=== PATIENT | male | born 1950 | race Hispanic/Latino ===

== ENCOUNTER → 2017-08-10 | Outpatient (CLI) | payer MEDICARE | END | disposition home or self-care (01) | LOC: RAH 08:21 | PROVIDERS: ATTEND Family Medicine | DX: I50.9 Heart failure, unspecified (principal); I51.7 Cardiomegaly; I35.1 Nonrheumatic aortic (valve) insufficiency | CPT/HCPCS: 93306 ==

== ENCOUNTER 2017-08-11 12:51 | Emergency (ER) | payer MEDICARE ==
[2017-08-11 14:22] LABS: BASOPHILS % (AUTO) 0.8 % (0.0-5.0); EOSINOPHILS % (AUTO) 1.1 % (0.0-8.0); HEMATOCRIT 28.2 % (42-54); LYMPHOCYTES % (AUTO) 12.7 % (21.0-51.0); MEAN CORPUSCULAR HEMOGLOBIN 31.4 pg (27.0-33.0); MEAN CORPUSCULAR VOLUME 92.4 fL (79-99); MONOCYTES % (AUTO) 5.3 % (3.0-13.0); NEUTROPHILS % (AUTO) 80.1 % (40.0-77.0); PLATELET COUNT (AUTO) 283 K/uL (130-400); RED BLOOD CELL COUNT(AUTO) 3.05 MIL/uL (4.50-6.20); RED CELL DISTRIBUTION WIDTH 13.4 % (11.0-15.5); WHITE BLOOD COUNT (AUTO) 9.9 K/uL (4.8-10.8)
[2017-08-11 14:37] LABS: ALBUMIN 2.9 g/dL (3.5-5.0); BILIRUBIN,TOTAL 0.6 mg/dL (0.2-1.0); POTASSIUM 5.6 mmol/L (3.5-5.1); TOTAL PROTEIN, SERUM 8.8 g/dL (6.0-8.3)
[2017-08-11 14:43] LABS: CREATININE 15.4 mg/dL (0.5-1.5)
== END 2017-08-11 15:55 | disposition left against medical advice (07) ==
LOC: EDH 12:51
DX: N17.9 Acute kidney failure, unspecified (principal); E87.5 Hyperkalemia
CPT/HCPCS: 36415; 80053; 85025; 93005; 94761

== ENCOUNTER 2017-08-14 15:59 | Inpatient (IN) | payer MEDICARE ==
[~2017-08-14] VITALS: Ht 162.6 cm; Wt 65.1 kg
[2017-08-14 16:35] LABS: BASOPHILS % (AUTO) 0.8 % (0.0-5.0); EOSINOPHILS % (AUTO) 1.1 % (0.0-8.0); HEMATOCRIT 27.8 % (42-54); LYMPHOCYTES % (AUTO) 11.8 % (21.0-51.0); MEAN CORPUSCULAR HEMOGLOBIN 31.7 pg (27.0-33.0); MEAN CORPUSCULAR HGB CONC 34.3 g/dL (32.0-36.0); MEAN CORPUSCULAR VOLUME 92.3 fL (79-99); MONOCYTES % (AUTO) 4.4 % (3.0-13.0); NEUTROPHILS % (AUTO) 81.9 % (40.0-77.0); PLATELET COUNT (AUTO) 306 K/uL (130-400); RED BLOOD CELL COUNT(AUTO) 3.01 MIL/uL (4.50-6.20); RED CELL DISTRIBUTION WIDTH 13.3 % (11.0-15.5); WHITE BLOOD COUNT (AUTO) 12.4 K/uL (4.8-10.8)
[2017-08-14] MEDS: PANTOPRAZOLE SODIUM 40 MG TABLET.DR PO SCH (16:51)
[2017-08-14] MEDS ORDERED: CALCIUM GLUCONATE 1 GM/10 ML VIAL IV ONE (16:54)
[2017-08-14] MEDS ORDERED: SODIUM BICARB 50MEQ 50ML VIAL ONE (16:54)
[2017-08-14] MEDS ORDERED: DEXTROSE 50%-WATER 50 ML DISP.SYRIN IV ONE (16:54)
[2017-08-14] MEDS ORDERED: SODIUM CHLORIDE 0.9% 50 ML IV ONE (16:55)
[2017-08-14] MEDS ORDERED: INSULIN HUMULIN R 100 UNIT/ML 3ML ONE (16:57)
[2017-08-14] MEDS ORDERED: SODIUM CHLORIDE 0.9% 10 ML VIAL IVP PRN (17:00)
[2017-08-14 17:03] LABS: INR 0.95 (0.85-1.15); PARTIAL THROMBOPLASTIN TIME 27.5 SEC (26.3-35.5)
[2017-08-14 17:10] LABS: ALBUMIN 3.1 g/dL (3.5-5.0); BILIRUBIN,TOTAL 0.7 mg/dL (0.2-1.0); TOTAL PROTEIN, SERUM 9.3 g/dL (6.0-8.3)
[2017-08-14 17:21] LABS: CREATININE 17.4 mg/dL (0.5-1.5)
[2017-08-14] MEDS ORDERED: SODIUM POLYSTYRENE SULFONATE 15 GM/60 ML ML PO NR (18:45)
[2017-08-14] MEDS ORDERED: SODIUM POLYSTYRENE SULFONATE 15 GM/60 ML ML ONE (18:47)
[2017-08-14] MEDS ORDERED: PANTOPRAZOLE SODIUM 40 MG TABLET.DR PO ONE (21:23)
[2017-08-14 21:45] VITALS: BP 151/80
[2017-08-14 23:05] VITALS: BP 134/71
[2017-08-15] VITALS (12 sets, daily range): BP systolic 118–165; BP diastolic 64–94
[2017-08-15 05:28] LABS: HEMATOCRIT 25.8 % (42-54); MEAN CORPUSCULAR HEMOGLOBIN 31.6 pg (27.0-33.0); MEAN CORPUSCULAR HGB CONC 34.7 g/dL (32.0-36.0); MEAN CORPUSCULAR VOLUME 91.1 fL (79-99); PLATELET COUNT (AUTO) 240 K/uL (130-400); RED BLOOD CELL COUNT(AUTO) 2.83 MIL/uL (4.50-6.20); RED CELL DISTRIBUTION WIDTH 13.3 % (11.0-15.5); WHITE BLOOD COUNT (AUTO) 9.5 K/uL (4.8-10.8)
[2017-08-15 05:36] LABS: INR 0.99 (0.85-1.15); PARTIAL THROMBOPLASTIN TIME 28.1 SEC (26.3-35.5); PROTHROMBIN TIME 10.4 SEC (9.6-11.6)
[2017-08-15 05:39] LABS: % IRON SATURATION 28.7 % (30-44)
[2017-08-15 05:46] LABS: POTASSIUM 5.6 mmol/L (3.5-5.1)
[2017-08-15 05:53] LABS: CREATININE 17.8 mg/dL (0.5-1.5)
[2017-08-15] MEDS ORDERED: LIDOCAINE HCL 1% 20 ML VIAL ONE (08:25)
[2017-08-15] MEDS: PANTOPRAZOLE SODIUM 40 MG TABLET.DR PO SCH (10:03)
[2017-08-15] MEDS: FOLIC ACID/VITAMIN B COMP W-C 1 MG CAPSULE PO SCH (10:03)
[2017-08-15] MEDS ORDERED: SODIUM CHLORIDE 0.9% 1000ML 1,000 ML IV PRN (11:00)
[2017-08-15] MEDS ORDERED: ALBUMIN (HUMAN) 25% 100 ML IV PRN (11:00)
[2017-08-15] MEDS ORDERED: 0.9% SODIUM CHLORIDE 250 ML IV BAG IV PRN (11:00)
[2017-08-15 11:18] LABS: HEMOGLOBIN A1C 5.5 % (4.0-6.0)
[2017-08-15 11:20] LABS: ALBUMIN 2.7 g/dL (3.5-5.0)
[2017-08-15] MEDS ORDERED: LIDOCAINE HCL 1% 20 ML VIAL MISC ONE (12:15)
[2017-08-15] MEDS ORDERED: EPOETIN ALFA 20,000 UNIT/ML VIAL SQ SCH (14:00)
[2017-08-15] MEDS: CALCIUM ACETATE 667 MG CAPSULE PO SCH (18:20)
[2017-08-15 23:21] LABS: HEMATOCRIT 24.9 % (42-54)
[2017-08-16] MEDS ORDERED: DESMOPRESSIN ACETATE 4 MCG/ML 0 MCG in SODIUM CHLORIDE 0.9% 50 ML IV SCH (00:15)
[2017-08-16] MEDS ORDERED: PHARMACY COMMUNICATION MISC SCH (01:45)
[2017-08-16 03:05] VITALS: BP 150/74
[2017-08-16] MEDS ORDERED: SODIUM CHLORIDE 0.9% IJ SCH (03:45)
[2017-08-16] MEDS ORDERED: DESMOPRESSIN ACETATE IJ SCH (03:45)
[2017-08-16 04:38] LABS: EOSINOPHILS % (AUTO) 1.4 % (0.0-8.0); HEMATOCRIT 23.3 % (42-54); LYMPHOCYTES % (AUTO) 17.5 % (21.0-51.0); MEAN CORPUSCULAR HEMOGLOBIN 32.4 pg (27.0-33.0); MEAN CORPUSCULAR VOLUME 90.1 fL (79-99); MONOCYTES % (AUTO) 6.9 % (3.0-13.0); NEUTROPHILS % (AUTO) 73.2 % (40.0-77.0); PLATELET COUNT (AUTO) 206 K/uL (130-400); RED BLOOD CELL COUNT(AUTO) 2.58 MIL/uL (4.50-6.20); RED CELL DISTRIBUTION WIDTH 13.3 % (11.0-15.5); WHITE BLOOD COUNT (AUTO) 9.8 K/uL (4.8-10.8)
[2017-08-16 04:58] LABS: ALBUMIN 2.6 g/dL (3.5-5.0); BILIRUBIN,TOTAL 0.6 mg/dL (0.2-1.0); POTASSIUM 4.5 mmol/L (3.5-5.1)
[2017-08-16 05:23] LABS: CREATININE 13.9 mg/dL (0.5-1.5)
[2017-08-16 07:00] VITALS: BP 134/69
[2017-08-16] MEDS: CALCIUM ACETATE 667 MG CAPSULE PO SCH ×2 (07:50→17:00)
[2017-08-16] MEDS: PANTOPRAZOLE SODIUM 40 MG TABLET.DR PO SCH (09:00)
[2017-08-16] MEDS: FOLIC ACID/VITAMIN B COMP W-C 1 MG CAPSULE PO SCH (09:00)
[2017-08-16 10:23] LABS: HEPATITIS Bs ANTIGEN SCREEN P Negative (Negative)
[2017-08-16 11:00] VITALS: BP 136/64
[2017-08-16 15:00] VITALS: BP 127/68
[2017-08-16] MEDS ORDERED: COMPOUND IV REFRIGERATED 1 EACH IVSOLN MISC PRN (15:45)
[2017-08-16 19:26] VITALS: BP 131/69
[2017-08-16] MEDS ORDERED: EPOETIN ALFA 20,000 UNIT/ML VIAL SQ SCH (21:00)
[2017-08-16] MEDS ORDERED: 0.9% SODIUM CHLORIDE 250 ML IV BAG IV PRN (23:15)
[2017-08-16] MEDS ORDERED: HEPARIN SODIUM 5000UNIT/ML 1ML VIAL IJ PRN (23:15)
[2017-08-16] MEDS ORDERED: SODIUM CHLORIDE 0.9% 1000ML 1,000 ML IV PRN (23:15)
[2017-08-16 23:35] VITALS: BP 147/95
[2017-08-17 03:27] VITALS: BP 118/71
[2017-08-17 04:34] LABS: BASOPHILS % (AUTO) 0.8 % (0.0-5.0); EOSINOPHILS % (AUTO) 1.2 % (0.0-8.0); HEMATOCRIT 25.2 % (42-54); LYMPHOCYTES % (AUTO) 13.8 % (21.0-51.0); MEAN CORPUSCULAR HEMOGLOBIN 31.5 pg (27.0-33.0); MEAN CORPUSCULAR HGB CONC 34.5 g/dL (32.0-36.0); MEAN CORPUSCULAR VOLUME 91.3 fL (79-99); MONOCYTES % (AUTO) 6.7 % (3.0-13.0); NEUTROPHILS % (AUTO) 77.5 % (40.0-77.0); PLATELET COUNT (AUTO) 200 K/uL (130-400); RED BLOOD CELL COUNT(AUTO) 2.76 MIL/uL (4.50-6.20); RED CELL DISTRIBUTION WIDTH 13.1 % (11.0-15.5); WHITE BLOOD COUNT (AUTO) 10.9 K/uL (4.8-10.8)
[2017-08-17 04:53] LABS: ALBUMIN 2.8 g/dL (3.5-5.0); BILIRUBIN,TOTAL 0.6 mg/dL (0.2-1.0); POTASSIUM 4.5 mmol/L (3.5-5.1); TOTAL PROTEIN, SERUM 8.5 g/dL (6.0-8.3)
[2017-08-17 05:01] LABS: CREATININE 12.6 mg/dL (0.5-1.5)
[2017-08-17 08:22] VITALS: BP 129/67
[2017-08-17] MEDS: CALCIUM ACETATE 667 MG CAPSULE PO SCH ×3 (08:42→16:23)
[2017-08-17] MEDS: PANTOPRAZOLE SODIUM 40 MG TABLET.DR PO SCH (08:42)
[2017-08-17] MEDS: FOLIC ACID/VITAMIN B COMP W-C 1 MG CAPSULE PO SCH (08:43)
[2017-08-17 11:49] VITALS: BP 127/67
[2017-08-17] MEDS ORDERED: 0.9% SODIUM CHLORIDE 250 ML IV BAG IV PRN (15:45)
[2017-08-17] MEDS ORDERED: ALBUMIN (HUMAN) 25% 100 ML IV PRN (15:45)
[2017-08-17] MEDS: HEPARIN SODIUM 5000UNIT/ML 1ML VIAL IJ PRN (16:23)
[2017-08-17 16:30] VITALS: BP 123/65
[2017-08-17 19:45] VITALS: BP 121/64
[2017-08-17 23:30] VITALS: BP 120/67
[2017-08-18] VITALS (18 sets, daily range): BP systolic 106–135; BP diastolic 49–80
[2017-08-18 04:50] LABS: HEMATOCRIT 23.5 % (42-54); MEAN CORPUSCULAR HEMOGLOBIN 32.3 pg (27.0-33.0); MEAN CORPUSCULAR VOLUME 92.4 fL (79-99); PLATELET COUNT (AUTO) 179 K/uL (130-400); RED BLOOD CELL COUNT(AUTO) 2.54 MIL/uL (4.50-6.20); RED CELL DISTRIBUTION WIDTH 13.4 % (11.0-15.5); WHITE BLOOD COUNT (AUTO) 12.6 K/uL (4.8-10.8)
[2017-08-18 05:11] LABS: POTASSIUM 4.2 mmol/L (3.5-5.1)
[2017-08-18 05:14] LABS: CREATININE 8.4 mg/dL (0.5-1.5)
[2017-08-18] MEDS ORDERED: BUPIVACAINE/PF 0.5% 30ML VIAL ONE (06:44)
[2017-08-18] MEDS ORDERED: EPINEPHRINE 1 MG/ML AMPULE ONE (06:44)
[2017-08-18] MEDS ORDERED: PAPAVERINE HCL 30 MG/ML 2ML VIAL ONE (06:44)
[2017-08-18] MEDS ORDERED: NEOMY SULF/POLYMYXIN B SULFATE 1 ML AMPUL IR ONE (06:45)
[2017-08-18] MEDS ORDERED: THROMBIN-JMI 5000 UNIT/VIAL TP ONE (06:45)
[2017-08-18] MEDS: CALCIUM ACETATE 667 MG CAPSULE PO SCH ×3 (07:30→16:04)
[2017-08-18] MEDS: CEFAZOLIN SODIUM 1 GM VIAL ONE ×2 (07:34→07:50)
[2017-08-18] MEDS ORDERED: KETAMINE HCL 100 MG/ML 5ML VIAL IJ ONE (07:35)
[2017-08-18] MEDS ORDERED: ROPIVACAINE 0.5% 5MG/ML 30ML IJ ONE (07:36)
[2017-08-18] MEDS ORDERED: MIDAZOLAM HCL 1 MG/ML 2ML VIAL ONE (07:38)
[2017-08-18] MEDS ORDERED: FENTANYL CITRATE PF 50 MCG/1 ML 2ML VIAL ONE (07:39)
[2017-08-18] MEDS: FOLIC ACID/VITAMIN B COMP W-C 1 MG CAPSULE PO SCH (09:00)
[2017-08-18] MEDS: PANTOPRAZOLE SODIUM 40 MG TABLET.DR PO SCH (09:00)
[2017-08-18] MEDS ORDERED: MEPERIDINE-PF 50 MG/ML SYG ONE (09:35)
[2017-08-18] MEDS ORDERED: ACETAMINOPHEN 325 MG TAB ONE (20:26)
[2017-08-19 00:38] VITALS: BP 118/65
[2017-08-19 04:05] VITALS: BP 120/63
[2017-08-19 05:34] LABS: HEMATOCRIT 25.5 % (42-54); MEAN CORPUSCULAR HEMOGLOBIN 31.5 pg (27.0-33.0); MEAN CORPUSCULAR HGB CONC 33.8 g/dL (32.0-36.0); MEAN CORPUSCULAR VOLUME 93.4 fL (79-99); PLATELET COUNT (AUTO) 203 K/uL (130-400); RED BLOOD CELL COUNT(AUTO) 2.73 MIL/uL (4.50-6.20); RED CELL DISTRIBUTION WIDTH 13.2 % (11.0-15.5); WHITE BLOOD COUNT (AUTO) 13.5 K/uL (4.8-10.8)
[2017-08-19 05:37] LABS: BAND NEUTROPHILS % (MANUAL) 2 % (0-2); BASOPHILS % (MANUAL) 3 % (0-2); EOSINOPHILS % (MANUAL) 4 % (1-6); LYMPHOCYTES % (MANUAL) 6 % (22-44); MAN.DIFF COMMENT-IMPRESSION MANUAL DIFFERENTIAL; MONOCYTES % (MANUAL) 8 % (2-9); PLATELET MORPHOLOGY COMMENT ADEQUATE; SEGMENTED NEUTROPHILS % 77 % (40-70)
[2017-08-19 05:42] LABS: PHOSPHORUS 6.6 mg/dL (2.5-4.9); POTASSIUM 4.7 mmol/L (3.5-5.1)
[2017-08-19 05:50] LABS: CREATININE 11.1 mg/dL (0.5-1.5)
[2017-08-19] MEDS: CALCIUM ACETATE 667 MG CAPSULE PO SCH ×2 (07:30→11:30)
[2017-08-19 08:00] VITALS: BP 135/68
[2017-08-19] MEDS: PANTOPRAZOLE SODIUM 40 MG TABLET.DR PO SCH (10:14)
[2017-08-19] MEDS: FOLIC ACID/VITAMIN B COMP W-C 1 MG CAPSULE PO SCH (10:14)
[2017-08-19 12:00] VITALS: BP 132/67
[2017-08-19] MEDS ORDERED: TRAMADOL HCL 50 MG TABLET PO PRN (13:45)
[2017-08-19] MEDS ORDERED: SEVELAMER HCL 800 MG TABLET PO SCH (17:00)
[2017-08-19 19:10] VITALS: BP 132/62
[2017-08-19] MEDS: HEPARIN SODIUM 5000UNIT/ML 1ML VIAL IJ PRN (21:55)
== END 2017-08-19 22:30 | disposition home or self-care (01) | DRG 628 ==
LOC: EDH 15:59 → EDHIP 16:15 → 3CH 21:36
PROVIDERS: ADMIT Family Medicine; ATTEND Family Medicine
PROC: 0JH63XZ Insertion of Tunneled Vascular Access Device into Chest Subcutaneous Tissue and Fascia, Percutaneous Approach (ICD-10-PCS; principal; 2017-08-15)
PROC: 5A1D70Z Performance of Urinary Filtration, Intermittent, Less than 6 Hours Per Day (ICD-10-PCS; 2017-08-15)
PROC: 02H633Z Insertion of Infusion Device into Right Atrium, Percutaneous Approach (ICD-10-PCS; 2017-08-15)
PROC: B244ZZZ Ultrasonography of Right Heart (ICD-10-PCS; 2017-08-15)
PROC: 5A1D70Z Performance of Urinary Filtration, Intermittent, Less than 6 Hours Per Day (ICD-10-PCS; 2017-08-16)
PROC: 5A1D70Z Performance of Urinary Filtration, Intermittent, Less than 6 Hours Per Day (ICD-10-PCS; 2017-08-17)
PROC: 031C0ZF Bypass Left Radial Artery to Lower Arm Vein, Open Approach (ICD-10-PCS; 2017-08-18)
PROC: 5A1D70Z Performance of Urinary Filtration, Intermittent, Less than 6 Hours Per Day (ICD-10-PCS; 2017-08-19)
DX: E87.5 Hyperkalemia (principal); N18.6 End stage renal disease; N17.9 Acute kidney failure, unspecified; E87.2 Acidosis; E11.21 Type 2 diabetes mellitus with diabetic nephropathy; I12.0 Hypertensive chronic kidney disease with stage 5 chronic kidney disease or end stage renal disease; D64.9 Anemia, unspecified; E11.22 Type 2 diabetes mellitus with diabetic chronic kidney disease; E78.5 Hyperlipidemia, unspecified; I73.9 Peripheral vascular disease, unspecified; Z82.49 Family history of ischemic heart disease and other diseases of the circulatory system; Z91.19 Patient's noncompliance with other medical treatment and regimen; Z91.15 Patient's noncompliance with renal dialysis; Z87.891 Personal history of nicotine dependence; Z99.2 Dependence on renal dialysis
CPT/HCPCS: 36415; 36558; 71046; 76770; 77001; 80048; 80053; 80061; 82040; 82550; 83036; 83540; 83550; 84100; 84520; 85014; 85018; 85025; 85027; 85610; 85730; 86701; 86704; 86706; 87340; 87390; 87520; 90935; 93005; 93971; 94761; A4218; C1750; J0171; J0610; J0690; J0885; J1644; J1815; J2175; J2250; J2440; J2795; J3010; J3490; J7030; J7070

== ENCOUNTER → 2018-03-06 | Outpatient (CLI) | payer MEDICARE | END | disposition home or self-care (01) | LOC: OIH 11:11 | PROVIDERS: ATTEND Family Medicine | DX: J15.7 Pneumonia due to Mycoplasma pneumoniae (principal) | CPT/HCPCS: 71046 ==

== ENCOUNTER 2018-06-01 08:45 | Emergency (ER) | payer MEDICARE ==
[2018-06-01] MEDS ORDERED: ONDANSETRON HCL 4 MG/2 ML VIAL ONE (09:00)
[2018-06-01 09:07] LABS: BASOPHILS % (AUTO) 0.9 % (0.0-5.0); EOSINOPHILS % (AUTO) 0.2 % (0.0-8.0); HEMATOCRIT 37.5 % (42-54); LYMPHOCYTES % (AUTO) 14.1 % (21.0-51.0); MEAN CORPUSCULAR HEMOGLOBIN 32.5 pg (27.0-33.0); MEAN CORPUSCULAR HGB CONC 33.7 g/dL (32.0-36.0); MEAN CORPUSCULAR VOLUME 96.3 fL (79-99); MONOCYTES % (AUTO) 16.1 % (3.0-13.0); NEUTROPHILS % (AUTO) 68.7 % (40.0-77.0); PLATELET COUNT (AUTO) 134 K/uL (130-400); RED BLOOD CELL COUNT(AUTO) 3.89 MIL/uL (4.50-6.20); RED CELL DISTRIBUTION WIDTH 14.3 % (11.0-15.5); WHITE BLOOD COUNT (AUTO) 5.7 K/uL (4.8-10.8)
[2018-06-01 09:20] LABS: ALBUMIN 3.6 g/dL (3.5-5.0); BILIRUBIN,TOTAL 0.8 mg/dL (0.2-1.0); POTASSIUM 4.7 mmol/L (3.5-5.1); TOTAL PROTEIN, SERUM 8.9 g/dL (6.0-8.3)
[2018-06-01 09:46] LABS: CREATININE 10.6 mg/dL (0.5-1.5)
[2018-06-01] MEDS ORDERED: PANTOPRAZOLE 40 MG/VIAL IVP ONE (11:15)
[2018-06-01 11:46] LABS: APPEARANCE,URINE Clear (CLEAR); BILIRUBIN,URINE Negative (NEGATIVE); COLOR,URINE Yellow (YELLOW); GLUCOSE, URINE (UA) TRACE mg/dL (NEGATIVE); KETONES,URINE Trace mg/dL (NEGATIVE); LEUKOCYTE ESTERASE ,URINE Negative (NEGATIVE); NITRATE,URINE Negative (NEGATIVE); OCCULT BLOOD,URINE Moderate (NEGATIVE); PH,URINE 8.5 (5.0-8.0); PROTEIN,URINE >=1000 (NEGATIVE)
[2018-06-01 11:56] LABS: BACTERIA,URINE Rare /HPF (None Seen); RBC,URINE 26-50 /HPF (0-1); SQUAMOUS EPITHELIAL CELL,UR Rare /HPF (0-2); WBC,URINE 0-1 /HPF (0-1)
== END 2018-06-01 13:56 | disposition home or self-care (01) ==
LOC: EDH 08:45
DX: I12.0 Hypertensive chronic kidney disease with stage 5 chronic kidney disease or end stage renal disease (principal); R11.2 Nausea with vomiting, unspecified; N18.6 End stage renal disease; R19.7 Diarrhea, unspecified; Z99.2 Dependence on renal dialysis
CPT/HCPCS: 36415; 71046; 80053; 81001; 84484; 85025; 87804 ×2; 93005; 96374; 96375; 99284; C9113; J2405

== ENCOUNTER → 2019-01-08 | Outpatient (CLI) | payer MEDICARE ==
[~2019-01-08] MED LIST: METR500T PO
== END | disposition home or self-care (01) ==
LOC: OIH 09:48
PROVIDERS: ATTEND Family Medicine
DX: I12.9 Hypertensive chronic kidney disease with stage 1 through stage 4 chronic kidney disease, or unspecified chronic kidney disease (principal); N18.9 Chronic kidney disease, unspecified
CPT/HCPCS: 71046

== ENCOUNTER 2019-02-11 11:47 | Inpatient (IN) | payer MEDICARE ==
[~2019-02-11] VITALS: Ht 162.6 cm; Wt 56.2 kg
[2019-02-11] MEDS ORDERED: ONDANSETRON ODT 4 MG TAB ONE (12:04)
[2019-02-11 12:41] LABS: BASOPHILS % (AUTO) 0.8 % (0.0-5.0); EOSINOPHILS % (AUTO) 0.3 % (0.0-8.0); HEMATOCRIT 38.7 % (42-54); LYMPHOCYTES % (AUTO) 16.7 % (21.0-51.0); MEAN CORPUSCULAR HEMOGLOBIN 32.8 pg (27.0-33.0); MEAN CORPUSCULAR HGB CONC 34.1 g/dL (32.0-36.0); MONOCYTES % (AUTO) 3.8 % (3.0-13.0); NEUTROPHILS % (AUTO) 78.4 % (40.0-77.0); NUCLEATED RED BLOOD CELLS 0.1 % (0.0-0.19); PLATELET COUNT (AUTO) 160 K/uL (130-400); RED BLOOD CELL COUNT(AUTO) 4.03 MIL/uL (4.50-6.20); RED CELL DISTRIBUTION WIDTH 14.7 % (11.0-15.5); WHITE BLOOD COUNT (AUTO) 7.7 K/uL (4.8-10.8)
[2019-02-11 12:57] LABS: ALBUMIN 3.8 g/dL (3.5-5.0); BILIRUBIN,TOTAL 0.9 mg/dL (0.2-1.0); TOTAL PROTEIN, SERUM 8.5 g/dL (6.0-8.3)
[2019-02-11 13:03] LABS: CREATININE 11.1 mg/dL (0.5-1.5); POTASSIUM 6.6 mmol/L (3.5-5.1)
[2019-02-11] MEDS ORDERED: ONDANSETRON HCL 4 MG/2 ML VIAL IVP PRN (13:45)
[2019-02-11] MEDS ORDERED: ALBUTEROL SULFATE 0.083% 2.5 MG/3 ML INH IH ONE (14:01)
[2019-02-11] MEDS ORDERED: FUROSEMIDE 10 MG/ML 2ML VIAL ONE (14:03)
[2019-02-11] MEDS ORDERED: INSULIN HUMULIN R 100 UNIT/ML 3ML ONE (14:04)
[2019-02-11] MEDS ORDERED: DEXTROSE 50%-WATER 50 ML DISP.SYRIN IV ONE ×2 (14:04→16:38)
[2019-02-11 20:00] VITALS: BP 171/87
[2019-02-11] MEDS: INSULIN R PO SS1 SQ SCH (21:00)
[2019-02-12] VITALS: BP 146/84
[2019-02-12 03:46] VITALS: BP 142/79
[2019-02-12 05:07] LABS: HEMATOCRIT 41.4 % (42-54); MEAN CORPUSCULAR HEMOGLOBIN 33.5 pg (27.0-33.0); MEAN CORPUSCULAR HGB CONC 34.7 g/dL (32.0-36.0); MEAN CORPUSCULAR VOLUME 96.7 fL (79-99); PLATELET COUNT (AUTO) 162 K/uL (130-400); RED BLOOD CELL COUNT(AUTO) 4.28 MIL/uL (4.50-6.20); RED CELL DISTRIBUTION WIDTH 14.7 % (11.0-15.5); WHITE BLOOD COUNT (AUTO) 10.3 K/uL (4.8-10.8)
[2019-02-12] MEDS: INSULIN R PO SS1 SQ SCH ×4 (05:33→21:00)
[2019-02-12 05:55] LABS: CREATININE 7.1 mg/dL (0.5-1.5); MAGNESIUM 2.2 mg/dL (1.80-2.40); POTASSIUM 3.8 mmol/L (3.5-5.1); TOTAL PROTEIN, SERUM 9.2 g/dL (6.0-8.3)
[2019-02-12 08:00] VITALS: BP 155/85
[2019-02-12] MEDS: PANTOPRAZOLE SODIUM 40 MG TABLET.DR PO SCH (09:25)
[2019-02-12 12:00] VITALS: BP 145/80
--- NOTE | 2019-02-12 12:20 | NUR ---
DC PLAN PER PATIENT, IS INDEPENDENT, LIVES WITH SISTER, NO PROVIDER, NO MEDICAL EQUIPMENT, AND FEELS SAFE TO RETURN HOME. PER PATIENT, HAS DIALYSIS MWF AT 3:30PM AT [facility]. Addendum: 02/12/19 at 1221 by EDDIE TOMLINSON RN Amended: Links added.
[2019-02-12 20:00] VITALS: BP 175/86
[2019-02-13] VITALS (8 sets, daily range): BP systolic 144–165; BP diastolic 79–85
[2019-02-13 05:20] LABS: HEMATOCRIT 44.7 % (42-54); MEAN CORPUSCULAR HEMOGLOBIN 32.7 pg (27.0-33.0); MEAN CORPUSCULAR HGB CONC 33.8 g/dL (32.0-36.0); MEAN CORPUSCULAR VOLUME 96.8 fL (79-99); PLATELET COUNT (AUTO) 179 K/uL (130-400); RED BLOOD CELL COUNT(AUTO) 4.62 MIL/uL (4.50-6.20); RED CELL DISTRIBUTION WIDTH 14.9 % (11.0-15.5); WHITE BLOOD COUNT (AUTO) 10.9 K/uL (4.8-10.8)
[2019-02-13 05:39] LABS: POTASSIUM 4.9 mmol/L (3.5-5.1)
[2019-02-13 05:44] LABS: CREATININE 10.4 mg/dL (0.5-1.5)
[2019-02-13] MEDS: INSULIN R PO SS1 SQ SCH ×4 (07:30→21:00)
[2019-02-13 08:11] LABS: HEPATITIS A ANTIBODY IGM Negative (Negative); HEPATITIS B CORE IGM Negative (Negative); HEPATITIS Bs ANTIGEN SCREEN P Negative (Negative)
[2019-02-13] MEDS: PANTOPRAZOLE SODIUM 40 MG TABLET.DR PO SCH (09:26)
[2019-02-13] MEDS ORDERED: LACTULOSE 20 GM/30 ML UDCUP PO PRN (17:00)
[2019-02-14 04:04] VITALS: BP 137/79
[2019-02-14 06:09] LABS: HEMATOCRIT 43.3 % (42-54); MEAN CORPUSCULAR HEMOGLOBIN 32.8 pg (27.0-33.0); MEAN CORPUSCULAR VOLUME 96.5 fL (79-99); PLATELET COUNT (AUTO) 183 K/uL (130-400); RED BLOOD CELL COUNT(AUTO) 4.49 MIL/uL (4.50-6.20); WHITE BLOOD COUNT (AUTO) 10.3 K/uL (4.8-10.8)
[2019-02-14 06:24] LABS: ALBUMIN 4.1 g/dL (3.5-5.0); BILIRUBIN,TOTAL 1.3 mg/dL (0.2-1.0); POTASSIUM 4.1 mmol/L (3.5-5.1); TOTAL PROTEIN, SERUM 9.1 g/dL (6.0-8.3)
[2019-02-14 06:30] LABS: CREATININE 8.6 mg/dL (0.5-1.5)
[2019-02-14] MEDS: INSULIN R PO SS1 SQ SCH ×3 (07:30→21:00)
[2019-02-14 07:44] VITALS: BP 142/79
[2019-02-14] MEDS: PANTOPRAZOLE SODIUM 40 MG TABLET.DR PO SCH (09:04)
[2019-02-14 11:35] VITALS: BP 159/78
--- NOTE | 2019-02-14 13:54 | NUR ---
PAGED DR. WRIGHT- ADVISED BY [employer] THAT DR. WRIGHT WAS RELUCTANT TO DC PATIENT. STATES PATIENT PAIN NEEDS TO BE CONTROLLED. CALL RECD FROM DR. Carpenter; STATES PATIENT IS COMPLAINING OF PAIN TO HIM, SO HE DOES NOT WANT TO DISCHARGE YET.
--- NOTE | 2019-02-14 14:23 | NUR ---
ZOFRAN Patient states he has been feeling with some discomfort when he eats, as if he is going to throw up, but he does not throw up. Just some saliva. And he has been feeling like this since this Monday. Denies any pain or needing pain medication. States his discomfort is related to food intake since Monday. Zofran was offered and accepted. States today he feels somewhat better but still uncomfortable. For lunch he ate 75% and is tolerating it. Since Monday, when symptoms started, he has not had any episodes of vomiting. Will update Dr. Redmond.
[2019-02-14 15:38] VITALS: BP 156/67
--- NOTE | 2019-02-14 18:30 | NUR ---
UPDATE Patient states he feels well. States he had 100% dinner and had no issues. States he feels well. Denies pain. Denies nausea. No emesis.
[2019-02-14 19:32] VITALS: BP 148/73
[2019-02-15] VITALS: BP 143/74
[2019-02-15 04:00] VITALS: BP 138/67
[2019-02-15 04:53] LABS: HEMATOCRIT 41.6 % (42-54); MEAN CORPUSCULAR HEMOGLOBIN 33.3 pg (27.0-33.0); MEAN CORPUSCULAR HGB CONC 34.4 g/dL (32.0-36.0); MEAN CORPUSCULAR VOLUME 96.6 fL (79-99); PLATELET COUNT (AUTO) 131 K/uL (130-400); RED CELL DISTRIBUTION WIDTH 14.5 % (11.0-15.5); WHITE BLOOD COUNT (AUTO) 10.9 K/uL (4.8-10.8)
[2019-02-15 05:15] LABS: ALBUMIN 3.7 g/dL (3.5-5.0); POTASSIUM 4.2 mmol/L (3.5-5.1); TOTAL PROTEIN, SERUM 8.2 g/dL (6.0-8.3)
[2019-02-15 05:18] LABS: CREATININE 10.5 mg/dL (0.5-1.5)
[2019-02-15] MEDS: INSULIN R PO SS1 SQ SCH ×3 (06:08→16:18)
--- NOTE | 2019-02-15 07:48 | NUR ---
PATIENT UPDATE Pt hasn't complained of any abdominal pain for the last 2 nights, sleeping well, started eating well and did verbalize desire to get discharged to home after hemodialysis today. HD nurse here this am, beginning to start hemodialysis. BUN of 53 and Creatinine of 10.5 this am.
[2019-02-15 08:08] VITALS: BP 165/71
[2019-02-15 11:35] VITALS: BP 145/82
--- NOTE | 2019-02-15 11:54 | NUR ---
DIALYSIS PATIENT RECEIVED DIALYSIS TODAY FROM 07:45 TO 10:45 HOURS. REMOVED WAS 0.5 LITERS. PATIENT TOLERATED PROCEDURE WITHOUT INCIDENT.
[2019-02-15] MEDS: PANTOPRAZOLE SODIUM 40 MG TABLET.DR PO SCH (12:13)
[2019-02-15 16:34] VITALS: BP 131/66
--- NOTE | 2019-02-15 18:00 | NUR ---
PATIENT DISCHARGE PATIENT DISCHARGED, IV DISCONTINUED, CATHLON INTACT, BLEEDING CONTROLLED, PATIENT TOLERATED WITHOUT INCIDENT.
== END 2019-02-15 18:15 | disposition home or self-care (01) | DRG 438 ==
LOC: EDH 11:47 → EDHIP 13:30 → 3AH 17:47
PROVIDERS: ADMIT Internal Medicine Nephrology; ATTEND Internal Medicine Nephrology
PROC: 5A1D70Z Performance of Urinary Filtration, Intermittent, Less than 6 Hours Per Day (ICD-10-PCS; principal; 2019-02-11)
PROC: 5A1D70Z Performance of Urinary Filtration, Intermittent, Less than 6 Hours Per Day (ICD-10-PCS; 2019-02-13)
PROC: 5A1D70Z Performance of Urinary Filtration, Intermittent, Less than 6 Hours Per Day (ICD-10-PCS; 2019-02-15)
DX: K85.90 Acute pancreatitis without necrosis or infection, unspecified (principal); N18.6 End stage renal disease; J18.9 Pneumonia, unspecified organism; I12.0 Hypertensive chronic kidney disease with stage 5 chronic kidney disease or end stage renal disease; E87.5 Hyperkalemia; E11.22 Type 2 diabetes mellitus with diabetic chronic kidney disease; E87.70 Fluid overload, unspecified; Z87.01 Personal history of pneumonia (recurrent); Z91.11 Patient's noncompliance with dietary regimen; Z91.19 Patient's noncompliance with other medical treatment and regimen; Z99.2 Dependence on renal dialysis; Z99.81 Dependence on supplemental oxygen; E11.51 Type 2 diabetes mellitus with diabetic peripheral angiopathy without gangrene
CPT/HCPCS: 36415; 76700; 80048; 80053; 80074; 82550; 82948; 83690; 83735; 84100; 84484; 85025; 85027; 90935; 93005; 94640; G0378; J1815; J1940; J2405; J7070

== ENCOUNTER 2019-02-27 12:38 | Emergency (ER) | payer MEDICARE ==
[2019-02-27 13:15] LABS: EOSINOPHILS % (AUTO) 0.2 % (0.0-8.0); HEMATOCRIT 39.7 % (42-54); LYMPHOCYTES % (AUTO) 15.2 % (21.0-51.0); MEAN CORPUSCULAR HEMOGLOBIN 33.3 pg (27.0-33.0); MEAN CORPUSCULAR HGB CONC 34.2 g/dL (32.0-36.0); MEAN CORPUSCULAR VOLUME 97.5 fL (79-99); MONOCYTES % (AUTO) 5.2 % (3.0-13.0); NEUTROPHILS % (AUTO) 78.4 % (40.0-77.0); NUCLEATED RED BLOOD CELLS 0.1 % (0.0-0.19); PLATELET COUNT (AUTO) 164 K/uL (130-400); RED BLOOD CELL COUNT(AUTO) 4.07 MIL/uL (4.50-6.20); WHITE BLOOD COUNT (AUTO) 9.5 K/uL (4.8-10.8)
[2019-02-27 13:22] LABS: ALBUMIN 4.1 g/dL (3.5-5.0); BILIRUBIN,DIRECT 0.2 mg/dL (0.0-0.3); BILIRUBIN,TOTAL 0.8 mg/dL (0.2-1.0); POTASSIUM 5.6 mmol/L (3.5-5.1); TOTAL PROTEIN, SERUM 8.8 g/dL (6.0-8.3)
[2019-02-27 13:24] LABS: INR 0.95 (0.85-1.15); PARTIAL THROMBOPLASTIN TIME 27.3 SEC (26.3-35.5)
[2019-02-27] MEDS ORDERED: KETOROLAC TROMETHAMINE 30MG/ML ONE (13:26)
[2019-02-27] MEDS ORDERED: ONDANSETRON HCL 4 MG/2 ML VIAL ONE (13:26)
[2019-02-27] MEDS ORDERED: SODIUM CHLORIDE 0.9% 1000ML 1,000 ML IV ONE (13:27)
[2019-02-27 13:35] LABS: CREATININE 10.1 mg/dL (0.5-1.5)
[2019-02-27 15:44] LABS: APPEARANCE,URINE Clear (CLEAR); BILIRUBIN,URINE Negative (NEGATIVE); COLOR,URINE Yellow (YELLOW); GLUCOSE, URINE (UA) Negative (NEGATIVE); KETONES,URINE Trace mg/dL (NEGATIVE); LEUKOCYTE ESTERASE ,URINE Trace (NEGATIVE); NITRATE,URINE Negative (NEGATIVE); OCCULT BLOOD,URINE Trace (NEGATIVE); PROTEIN,URINE 300 mg/dL (NEGATIVE)
[2019-02-27 16:00] LABS: BACTERIA,URINE Few /HPF (None Seen); MUCUS,URINE Moderate LPF (None Seen)
== END 2019-02-27 16:10 | disposition home or self-care (01) ==
LOC: EDH 12:38
DX: R11.2 Nausea with vomiting, unspecified (principal); R10.13 Epigastric pain; I12.0 Hypertensive chronic kidney disease with stage 5 chronic kidney disease or end stage renal disease; N18.6 End stage renal disease; Z99.2 Dependence on renal dialysis
CPT/HCPCS: 36415; 74176; 80048; 80076; 81001; 82550; 83690; 84484; 85025; 85610; 85730; 93005; 96361; 96374; 96375; 99285; J1885; J2405; J7030

== ENCOUNTER 2020-12-01 19:09 | Inpatient (IN) | payer MEDICARE ==
[~2020-12-01] VITALS: Ht 162.6 cm; Wt 56.3 kg
[2020-12-01 19:39] VITALS: BP 154/74
[2020-12-01 20:42] LABS: BASOPHILS % (AUTO) 0.7 % (0.0-5.0); EOSINOPHILS % (AUTO) 3.2 % (0.0-8.0); MEAN CORPUSCULAR HEMOGLOBIN 30.6 pg (27.0-33.0); MEAN CORPUSCULAR HGB CONC 32.4 g/dL (32.0-36.0); MEAN CORPUSCULAR VOLUME 94.4 fL (79-99); MONOCYTES % (AUTO) 5.5 % (3.0-13.0); NEUTROPHILS % (AUTO) 80.2 % (40.0-77.0); PLATELET COUNT (AUTO) 168 K/uL (130-400); RED BLOOD CELL COUNT(AUTO) 1.96 MIL/uL (4.50-6.20); RED CELL DISTRIBUTION WIDTH 16.2 % (11.0-15.5); WHITE BLOOD COUNT (AUTO) 7.6 K/uL (4.8-10.8)
[2020-12-01 20:48] LABS: HEMATOCRIT 18.5 % (42-54)
[2020-12-01 20:59] LABS: B-TYPE NATRIURETIC PEPTIDE 1380 pg/mL (0-100)
[2020-12-01 21:13] LABS: BILIRUBIN,TOTAL 0.5 mg/dL (0.2-1.0); MAGNESIUM 2.2 mg/dL (1.80-2.40); PHOSPHORUS 11.6 mg/dL (2.5-4.9); POTASSIUM 4.2 mmol/L (3.5-5.1); TOTAL PROTEIN, SERUM 6.8 g/dL (6.0-8.3)
[2020-12-01] MEDS ORDERED: ONDANSETRON 4MG INJ IV PRN (22:00)
[2020-12-01] MEDS ORDERED: ALBUTEROL 0.083% 2.5 MG/3 ML INH IH PRN (22:00)
[2020-12-01] MEDS ORDERED: NITROGLYCERIN 0.4 MG SL TAB SL PRN (22:00)
[2020-12-01] MEDS ORDERED: ACETAMINOPHEN 325 MG TAB PO PRN ×2 (22:00)
[2020-12-01] MEDS ORDERED: LACTULOSE 20 GM/30 ML UDCUP PO PRN (22:00)
[2020-12-01] MEDS ORDERED: HYDRALAZINE 20MG/ML VIAL IV PRN (22:30)
[2020-12-01 22:38] LABS: INR 1.06 (0.85-1.15); PROTHROMBIN TIME 11.5 SEC (9.6-11.6)
[2020-12-01 22:40] LABS: HEMOGLOBIN A1C 4.9 % (4.0-6.0); PARTIAL THROMBOPLASTIN TIME 30.7 SEC (26.3-35.5)
[2020-12-01 22:41] LABS: % IRON SATURATION 116.6 % (30-44)
[2020-12-01 23:28] VITALS: BP 151/65
[2020-12-02] VITALS (19 sets, daily range): BP systolic 100–158; BP diastolic 55–75
[2020-12-02 04:37] LABS: APPEARANCE,URINE Clear (CLEAR); BILIRUBIN,URINE Negative (NEGATIVE); COLOR,URINE Yellow (YELLOW); GLUCOSE, URINE (UA) TRACE mg/dL (NEGATIVE); KETONES,URINE Trace mg/dL (NEGATIVE); LEUKOCYTE ESTERASE ,URINE Negative (NEGATIVE); NITRATE,URINE Negative (NEGATIVE); OCCULT BLOOD,URINE Trace (NEGATIVE); PROTEIN,URINE 300 mg/dL (NEGATIVE); UROBILINOGEN,URINE 0.2 mg/dL (0.2-1.0)
[2020-12-02 04:52] LABS: BACTERIA,URINE Few /HPF (None Seen); RBC,URINE None Seen /HPF (0-1)
[2020-12-02 06:33] LABS: BASOPHILS % (AUTO) 0.3 % (0.0-5.0); EOSINOPHILS % (AUTO) 3.3 % (0.0-8.0); HEMATOCRIT 25.3 % (42-54); LYMPHOCYTES % (AUTO) 9.2 % (21.0-51.0); MEAN CORPUSCULAR HEMOGLOBIN 29.9 pg (27.0-33.0); MEAN CORPUSCULAR VOLUME 93.4 fL (79-99); MONOCYTES % (AUTO) 6.2 % (3.0-13.0); NEUTROPHILS % (AUTO) 80.7 % (40.0-77.0); PLATELET COUNT (AUTO) 164 K/uL (130-400); RED BLOOD CELL COUNT(AUTO) 2.71 MIL/uL (4.50-6.20); RED CELL DISTRIBUTION WIDTH 15.6 % (11.0-15.5); WHITE BLOOD COUNT (AUTO) 7.3 K/uL (4.8-10.8)
[2020-12-02 06:54] LABS: ALBUMIN 2.9 g/dL (3.5-5.0); BILIRUBIN,TOTAL 0.6 mg/dL (0.2-1.0); MAGNESIUM 2.2 mg/dL (1.80-2.40); POTASSIUM 4.2 mmol/L (3.5-5.1); TOTAL PROTEIN, SERUM 6.8 g/dL (6.0-8.3)
[2020-12-02 06:56] LABS: CREATININE 30.3 mg/dL (0.5-1.5)
[2020-12-02] MEDS ORDERED: CLONIDINE HCL 0.1 MG TABLET PO PRN (08:30)
[2020-12-02] MEDS: PANTOPRAZOLE 40 MG/VIAL IVP SCH ×2 (08:32→21:41)
[2020-12-02] MEDS: SODIUM BICARBONATE 650 MG TAB PO SCH ×3 (09:39→21:41)
[2020-12-02] MEDS: METOPROLOL TARTRATE 25 MG TAB PO SCH ×2 (09:39→21:53)
[2020-12-02] MEDS: FERROUS SULFATE 325 MG TABLET.DR PO SCH (09:39)
[2020-12-02] MEDS: LISINOPRIL 20 MG TABLET PO SCH (09:39)
[2020-12-02] MEDS: Vitamin B Complex/Vit C/Folic Acid PO SCH (09:39)
[2020-12-02] MEDS ORDERED: 0.9%NACL 1000ML 1,000 ML IV PRN (19:00)
[2020-12-02] MEDS: METOCLOPRAMIDE 10 MG/2 ML VIAL IVP SCH (21:41)
[2020-12-03] VITALS (9 sets, daily range): BP systolic 118–148; BP diastolic 53–83
[2020-12-03 05:39] LABS: BASOPHILS % (AUTO) 0.4 % (0.0-5.0); EOSINOPHILS % (AUTO) 2.1 % (0.0-8.0); HEMATOCRIT 24.8 % (42-54); MEAN CORPUSCULAR HEMOGLOBIN 29.8 pg (27.0-33.0); MEAN CORPUSCULAR HGB CONC 32.7 g/dL (32.0-36.0); MEAN CORPUSCULAR VOLUME 91.2 fL (79-99); MONOCYTES % (AUTO) 6.4 % (3.0-13.0); NEUTROPHILS % (AUTO) 83.7 % (40.0-77.0); PLATELET COUNT (AUTO) 147 K/uL (130-400); RED BLOOD CELL COUNT(AUTO) 2.72 MIL/uL (4.50-6.20); RED CELL DISTRIBUTION WIDTH 15.9 % (11.0-15.5); WHITE BLOOD COUNT (AUTO) 7.3 K/uL (4.8-10.8)
[2020-12-03] MEDS: METOCLOPRAMIDE 10 MG/2 ML VIAL IVP SCH ×4 (06:33→20:32)
[2020-12-03 06:38] LABS: % IRON SATURATION 91.1 % (30-44)
[2020-12-03 06:59] LABS: BILIRUBIN,TOTAL 0.6 mg/dL (0.2-1.0); MAGNESIUM 2.1 mg/dL (1.80-2.40); PHOSPHORUS 7.7 mg/dL (2.5-4.9); POTASSIUM 3.3 mmol/L (3.5-5.1)
[2020-12-03 07:00] LABS: ALBUMIN 2.9 g/dL (3.5-5.0); TOTAL PROTEIN, SERUM 6.9 g/dL (6.0-8.3)
[2020-12-03 07:02] LABS: CREATININE 20.5 mg/dL (0.5-1.5)
[2020-12-03] MEDS: SODIUM BICARBONATE 650 MG TAB PO SCH ×3 (10:16→20:32)
[2020-12-03] MEDS: PANTOPRAZOLE 40 MG/VIAL IVP SCH ×2 (10:16→20:32)
[2020-12-03] MEDS: FERROUS SULFATE 325 MG TABLET.DR PO SCH (10:17)
[2020-12-03] MEDS: METOPROLOL TARTRATE 25 MG TAB PO SCH ×2 (10:17→20:33)
[2020-12-03] MEDS: LISINOPRIL 20 MG TABLET PO SCH (10:17)
[2020-12-03] MEDS: Vitamin B Complex/Vit C/Folic Acid PO SCH (10:17)
[2020-12-04] VITALS (20 sets, daily range): BP systolic 124–147; BP diastolic 52–69
[2020-12-04 04:25] LABS: PHOSPHORUS 7.6 mg/dL (2.5-4.9); POTASSIUM 3.1 mmol/L (3.5-5.1)
[2020-12-04 04:30] LABS: CREATININE 20.7 mg/dL (0.5-1.5)
[2020-12-04 05:02] LABS: MEAN CORPUSCULAR HEMOGLOBIN 30.1 pg (27.0-33.0); MEAN CORPUSCULAR HGB CONC 33.2 g/dL (32.0-36.0); MEAN CORPUSCULAR VOLUME 90.7 fL (79-99); PLATELET COUNT (AUTO) 111 K/uL (130-400); RED BLOOD CELL COUNT(AUTO) 2.16 MIL/uL (4.50-6.20); RED CELL DISTRIBUTION WIDTH 15.9 % (11.0-15.5); WHITE BLOOD COUNT (AUTO) 7.3 K/uL (4.8-10.8)
[2020-12-04 05:04] LABS: HEMATOCRIT 19.6 % (42-54)
[2020-12-04 06:07] LABS: EOSINOPHILS % (MANUAL) 2 % (1-6); LYMPHOCYTES % (MANUAL) 15 % (22-44); MAN.DIFF COMMENT-IMPRESSION MANUAL DIFFERENTIAL; MONOCYTES % (MANUAL) 7 % (2-9); SEGMENTED NEUTROPHILS % 76 % (40-70)
[2020-12-04 06:08] LABS: PLATELET MORPHOLOGY COMMENT SLIGHTLY DECREASED
[2020-12-04] MEDS: METOCLOPRAMIDE 10 MG/2 ML VIAL IVP SCH ×4 (06:31→20:25)
[2020-12-04] MEDS: PANTOPRAZOLE 40 MG/VIAL IVP SCH ×2 (08:59→20:25)
[2020-12-04] MEDS: SODIUM BICARBONATE 650 MG TAB PO SCH ×3 (08:59→20:26)
[2020-12-04] MEDS: Vitamin B Complex/Vit C/Folic Acid PO SCH (08:59)
[2020-12-04] MEDS: FERROUS SULFATE 325 MG TABLET.DR PO SCH (08:59)
[2020-12-04 12:12] LABS: HEPATITIS Bs ANTIGEN SCREEN P Negative (Negative)
[2020-12-04] MEDS: LISINOPRIL 20 MG TABLET PO SCH (13:12)
[2020-12-04] MEDS: METOPROLOL TARTRATE 25 MG TAB PO SCH ×2 (13:12→20:26)
[2020-12-04] MEDS: SEVELAMER HCL 800 MG TABLET PO SCH (17:14)
[2020-12-04] MEDS ORDERED: EPOETIN ALFA-EPBX (ESRD) 10,000 UNIT/ML VIAL SQ PRN (17:30)
[2020-12-04] MEDS: EPOETIN ALFA-EPBX (ESRD) 10,000 UNIT/ML VIAL SQ SCH (20:25)
[2020-12-04] MEDS ORDERED: EPOETIN ALFA-EPBX (ESRD) 10,000 UNIT/ML VIAL SQ SCH (21:00)
[2020-12-05] VITALS: BP 119/54
[2020-12-05 04:00] VITALS: BP 122/57
[2020-12-05 05:25] LABS: BASOPHILS % (AUTO) 0.5 % (0.0-5.0); EOSINOPHILS % (AUTO) 3.2 % (0.0-8.0); HEMATOCRIT 24.1 % (42-54); LYMPHOCYTES % (AUTO) 17.5 % (21.0-51.0); MEAN CORPUSCULAR HEMOGLOBIN 29.6 pg (27.0-33.0); MEAN CORPUSCULAR HGB CONC 33.2 g/dL (32.0-36.0); MEAN CORPUSCULAR VOLUME 89.3 fL (79-99); MONOCYTES % (AUTO) 11.8 % (3.0-13.0); NEUTROPHILS % (AUTO) 66.4 % (40.0-77.0); PLATELET COUNT (AUTO) 103 K/uL (130-400); RED CELL DISTRIBUTION WIDTH 17.1 % (11.0-15.5); WHITE BLOOD COUNT (AUTO) 6.6 K/uL (4.8-10.8)
[2020-12-05 05:41] LABS: ALBUMIN 2.3 g/dL (3.5-5.0); BILIRUBIN,TOTAL 0.7 mg/dL (0.2-1.0); PHOSPHORUS 3.2 mg/dL (2.5-4.9); TOTAL PROTEIN, SERUM 5.6 g/dL (6.0-8.3)
[2020-12-05 06:13] LABS: CREATININE 10.3 mg/dL (0.5-1.5)
[2020-12-05] MEDS: METOCLOPRAMIDE 10 MG/2 ML VIAL IVP SCH ×4 (06:49→20:12)
[2020-12-05 08:00] VITALS: BP 138/57
[2020-12-05] MEDS: PANTOPRAZOLE 40 MG/VIAL IVP SCH ×2 (08:18→20:12)
[2020-12-05] MEDS: METOPROLOL TARTRATE 25 MG TAB PO SCH ×2 (08:18→20:12)
[2020-12-05] MEDS: Vitamin B Complex/Vit C/Folic Acid PO SCH (08:18)
[2020-12-05] MEDS: SEVELAMER HCL 800 MG TABLET PO SCH ×3 (08:18→16:44)
[2020-12-05] MEDS: SODIUM BICARBONATE 650 MG TAB PO SCH ×3 (08:18→20:12)
[2020-12-05] MEDS: FERROUS SULFATE 325 MG TABLET.DR PO SCH (08:18)
[2020-12-05] MEDS: LISINOPRIL 20 MG TABLET PO SCH (09:52)
[2020-12-05 12:00] VITALS: BP 133/52
[2020-12-05 16:00] VITALS: BP 131/59
[2020-12-05 20:00] VITALS: BP 142/63
[2020-12-06] VITALS: BP 133/59
[2020-12-06 04:00] VITALS: BP 132/62
[2020-12-06] MEDS: METOCLOPRAMIDE 10 MG/2 ML VIAL IVP SCH ×4 (05:48→20:11)
[2020-12-06 06:16] LABS: BASOPHILS % (AUTO) 0.5 % (0.0-5.0); EOSINOPHILS % (AUTO) 3.2 % (0.0-8.0); HEMATOCRIT 23.4 % (42-54); LYMPHOCYTES % (AUTO) 14.1 % (21.0-51.0); MEAN CORPUSCULAR HEMOGLOBIN 29.7 pg (27.0-33.0); MEAN CORPUSCULAR HGB CONC 33.3 g/dL (32.0-36.0); NEUTROPHILS % (AUTO) 69.8 % (40.0-77.0); PLATELET COUNT (AUTO) 131 K/uL (130-400); RED BLOOD CELL COUNT(AUTO) 2.63 MIL/uL (4.50-6.20); RED CELL DISTRIBUTION WIDTH 17.2 % (11.0-15.5); WHITE BLOOD COUNT (AUTO) 8.1 K/uL (4.8-10.8)
[2020-12-06 06:34] LABS: CREATININE 11.7 mg/dL (0.5-1.5); POTASSIUM 2.9 mmol/L (3.5-5.1)
[2020-12-06 08:00] VITALS: BP 152/65
[2020-12-06] MEDS: SEVELAMER HCL 800 MG TABLET PO SCH ×3 (08:57→16:27)
[2020-12-06] MEDS: Vitamin B Complex/Vit C/Folic Acid PO SCH (08:57)
[2020-12-06] MEDS: FERROUS SULFATE 325 MG TABLET.DR PO SCH (08:57)
[2020-12-06] MEDS: SODIUM BICARBONATE 650 MG TAB PO SCH ×3 (08:57→20:11)
[2020-12-06] MEDS: METOPROLOL TARTRATE 25 MG TAB PO SCH ×2 (08:57→20:11)
[2020-12-06] MEDS: PANTOPRAZOLE 40 MG/VIAL IVP SCH ×2 (08:58→20:11)
[2020-12-06] MEDS: LISINOPRIL 20 MG TABLET PO SCH (08:58)
[2020-12-06] MEDS ORDERED: POTASSIUM CHLORIDE 10MEQ SR TAB PO SCH (11:30)
[2020-12-06 12:00] VITALS: BP 137/59
[2020-12-06 16:00] VITALS: BP 139/62
[2020-12-06] MEDS ORDERED: LIDOCAINE HCL-MPF 1% 2ML VIAL IV PRN (18:30)
[2020-12-06] MEDS ORDERED: KCL 20 MEQ ERTAB PO PRN (18:30)
[2020-12-06] MEDS ORDERED: POTASSIUM CHLORIDE 10MEQ/100ML 100 ML IV PRN (18:30)
[2020-12-06] MEDS ORDERED: POTASSIUM CHLORIDE 10% ELIXIR 20 MEQ/15 ML UDCUP PO PRN (18:30)
[2020-12-06 20:00] VITALS: BP 136/61
[2020-12-07] VITALS (21 sets, daily range): BP systolic 128–158; BP diastolic 62–77
[2020-12-07 04:16] LABS: HEMATOCRIT 23.5 % (42-54); MEAN CORPUSCULAR HEMOGLOBIN 29.5 pg (27.0-33.0); MEAN CORPUSCULAR HGB CONC 31.9 g/dL (32.0-36.0); MEAN CORPUSCULAR VOLUME 92.5 fL (79-99); RED BLOOD CELL COUNT(AUTO) 2.54 MIL/uL (4.50-6.20); WHITE BLOOD COUNT (AUTO) 8.5 K/uL (4.8-10.8)
[2020-12-07 04:22] LABS: MAGNESIUM 1.6 mg/dL (1.80-2.40); POTASSIUM 3.2 mmol/L (3.5-5.1)
[2020-12-07 04:52] LABS: CREATININE 12.8 mg/dL (0.5-1.5)
[2020-12-07] MEDS: METOPROLOL TARTRATE 25 MG TAB PO SCH ×2 (09:00→21:48)
[2020-12-07] MEDS: LISINOPRIL 20 MG TABLET PO SCH (09:00)
[2020-12-07] MEDS: PANTOPRAZOLE 40 MG/VIAL IVP SCH ×2 (09:02→21:48)
[2020-12-07] MEDS: FERROUS SULFATE 325 MG TABLET.DR PO SCH (09:02)
[2020-12-07] MEDS: METOCLOPRAMIDE 10 MG/2 ML VIAL IVP SCH ×4 (09:02→21:48)
[2020-12-07] MEDS: Vitamin B Complex/Vit C/Folic Acid PO SCH (09:02)
[2020-12-07] MEDS: SODIUM BICARBONATE 650 MG TAB PO SCH ×3 (09:02→21:48)
[2020-12-07] MEDS: SEVELAMER HCL 800 MG TABLET PO SCH ×3 (09:02→15:59)
[2020-12-07] MEDS ORDERED: EPOETIN ALFA-EPBX (ESRD) 10,000 UNIT/ML VIAL SQ SCH (14:30)
[2020-12-07] MEDS: EPOETIN ALFA-EPBX (ESRD) 10,000 UNIT/ML VIAL SQ SCH (21:49)
[2020-12-08 00:31] VITALS: BP 139/66
[2020-12-08 04:03] LABS: HEMATOCRIT 25.9 % (42-54); MEAN CORPUSCULAR HGB CONC 32.4 g/dL (32.0-36.0); MEAN CORPUSCULAR VOLUME 92.5 fL (79-99); PLATELET COUNT (AUTO) 114 K/uL (130-400); RED CELL DISTRIBUTION WIDTH 17.1 % (11.0-15.5); WHITE BLOOD COUNT (AUTO) 8.1 K/uL (4.8-10.8)
[2020-12-08 04:07] VITALS: BP 146/71
[2020-12-08 04:22] LABS: CREATININE 7.3 mg/dL (0.5-1.5); PHOSPHORUS 2.2 mg/dL (2.5-4.9); POTASSIUM 3.7 mmol/L (3.5-5.1)
[2020-12-08 04:46] LABS: % IRON SATURATION 17.6 % (30-44)
[2020-12-08 05:12] LABS: EOSINOPHILS % (MANUAL) 2 % (1-6); LYMPHOCYTES % (MANUAL) 12 % (22-44); MAN.DIFF COMMENT-IMPRESSION MANUAL DIFFERENTIAL; MONOCYTES % (MANUAL) 8 % (2-9); SEGMENTED NEUTROPHILS % 78 % (40-70)
[2020-12-08 05:15] LABS: PLATELET MORPHOLOGY COMMENT SLIGHTLY DECREASED
[2020-12-08] MEDS: SEVELAMER HCL 800 MG TABLET PO SCH ×2 (07:43→11:04)
[2020-12-08 08:00] VITALS: BP 140/62
[2020-12-08] MEDS: METOPROLOL TARTRATE 25 MG TAB PO SCH (08:21)
[2020-12-08] MEDS: METOCLOPRAMIDE 10 MG/2 ML VIAL IVP SCH ×2 (08:21→11:32)
[2020-12-08] MEDS: Vitamin B Complex/Vit C/Folic Acid PO SCH (08:21)
[2020-12-08] MEDS: PANTOPRAZOLE 40 MG/VIAL IVP SCH (08:21)
[2020-12-08] MEDS: LISINOPRIL 20 MG TABLET PO SCH (08:22)
[2020-12-08] MEDS: SODIUM BICARBONATE 650 MG TAB PO SCH (08:22)
[2020-12-08] MEDS: FERROUS SULFATE 325 MG TABLET.DR PO SCH (08:22)
[2020-12-08 12:00] VITALS: BP 136/63
== END 2020-12-08 16:10 | disposition home or self-care (01) | DRG 682 ==
LOC: EDH 19:09 → OBSVTOIN 21:51 → EDHIP 21:51 → 4CH 12-03 03:54
PROVIDERS: ADMIT Internal Medicine Critical Care Medicine; ATTEND Internal Medicine Critical Care Medicine
PROC: 30233N1 Transfusion of Nonautologous Red Blood Cells into Peripheral Vein, Percutaneous Approach (ICD-10-PCS; principal; 2020-12-02)
PROC: 5A1D70Z Performance of Urinary Filtration, Intermittent, Less than 6 Hours Per Day (ICD-10-PCS; 2020-12-02)
PROC: 5A1D70Z Performance of Urinary Filtration, Intermittent, Less than 6 Hours Per Day (ICD-10-PCS; 2020-12-04)
PROC: 5A1D70Z Performance of Urinary Filtration, Intermittent, Less than 6 Hours Per Day (ICD-10-PCS; 2020-12-07)
DX: I12.0 Hypertensive chronic kidney disease with stage 5 chronic kidney disease or end stage renal disease (principal); N18.6 End stage renal disease; R64 Cachexia; E87.2 Acidosis; E87.70 Fluid overload, unspecified; E11.22 Type 2 diabetes mellitus with diabetic chronic kidney disease; D63.1 Anemia in chronic kidney disease; E78.5 Hyperlipidemia, unspecified; Z20.822 Contact with and (suspected) exposure to COVID-19; Z60.2 Problems related to living alone; E87.8 Other disorders of electrolyte and fluid balance, not elsewhere classified; Z68.21 Body mass index [BMI] 21.0-21.9, adult; Z99.2 Dependence on renal dialysis; Z91.15 Patient's noncompliance with renal dialysis; Z91.19 Patient's noncompliance with other medical treatment and regimen
CPT/HCPCS: 36415; 71045; 80048; 80053; 81001; 82140; 82270; 82728; 83036; 83540; 83550; 83605; 83735; 83880; 84100; 84484; 85025; 85027; 85060; 85384; 85610; 85730; 86704; 86706; 86850; 86900; 86901; 86923; 87040; 87088; 87340; 87635; 90935; 93005; 94640; C1894; C9113; G0378; J2765; P9016